=== PATIENT | female | born 1980 | race Caucasian/White ===

== ENCOUNTER 2018-01-08 08:55 | Outpatient (CLI) | payer OTHER | END 2018-01-08 17:00 | disposition home or self-care (01) | LOC: MAMO-SONO 08:55 | DX: Z12.31 Encounter for screening mammogram for malignant neoplasm of breast (principal); Z87.898 Personal history of other specified conditions; N60.11 Diffuse cystic mastopathy of right breast ==

== ENCOUNTER 2021-04-07 09:37 | Outpatient (CLI) | payer OTHER | END 2021-04-07 09:48 | disposition home or self-care (01) | LOC: SONOGRAMA 09:37 → MAMO-SONO 10:15 | PROVIDERS: ATTEND Internal Medicine | DX: E03.8 Other specified hypothyroidism (principal); E04.1 Nontoxic single thyroid nodule ==

== ENCOUNTER 2022-06-02 11:03 | Outpatient (CLI) | payer OTHER | END 2022-06-02 11:09 | disposition home or self-care (01) | LOC: SONOGRAMA 11:03 | PROVIDERS: ATTEND Internal Medicine | DX: N18.2 Chronic kidney disease, stage 2 (mild) (principal) ==

== ENCOUNTER 2022-12-22 08:27 | Outpatient (CLI) | payer OTHER | END 2022-12-22 08:44 | disposition home or self-care (01) | LOC: MAMO-SONO 08:27 | PROVIDERS: ATTEND Internal Medicine | DX: Z12.31 Encounter for screening mammogram for malignant neoplasm of breast (principal); N64.4 Mastodynia; N60.11 Diffuse cystic mastopathy of right breast ==

== ENCOUNTER 2024-03-06 08:25 | Outpatient (CLI) | payer OTHER | END 2024-03-06 08:32 | disposition home or self-care (01) | LOC: SONOGRAMA 08:25 | PROVIDERS: ATTEND Urology | DX: N32.81 Overactive bladder (principal) ==

== ENCOUNTER 2025-07-08 10:58 | Outpatient (CLI) | payer OTHER | END 2025-07-08 11:06 | disposition home or self-care (01) | LOC: RAD 10:58 | PROVIDERS: ATTEND Internal Medicine | DX: K59.00 Constipation, unspecified (principal) ==